=== PATIENT | female | born 1975 | race Two or more races ===

== ENCOUNTER 2024-05-06 06:30 | Day surgery (SDC) | payer OTHER ==
[~2024-05-06 06:30] MED LIST: PROMETRIUM200 MG PO
[2024-05-06] MEDS ORDERED: POVIDONE-IODINE 118 ML BOTT TOP ONE ×2 (09:08→13:30)
[2024-05-06] MEDS ORDERED: ONDANSETRON HCL 2 MG/ML VIAL ONE (11:16)
== END 2024-05-06 15:30 | disposition home or self-care (01) ==
LOC: CIR.AMB 06:30
PROVIDERS: ATTEND Obstetrics & Gynecology
DX: D06.9 Carcinoma in situ of cervix, unspecified (principal); Z88.1 Allergy status to other antibiotic agents; J45.909 Unspecified asthma, uncomplicated; F41.9 Anxiety disorder, unspecified